=== PATIENT | female | born 1980 | race Caucasian/White ===

== ENCOUNTER 2018-06-01 20:44 | Emergency (ER) | payer OTHER ==
[~2018-06-01] VITALS: Ht 162.6 cm; Wt 72.6 kg
[2018-06-01] MEDS ORDERED: LOPRESSOR50 (21:00)
[2018-06-01] MEDS ORDERED: MUSCLE RELAXER (21:01)
[2018-06-01] MEDS ORDERED: CYMBALTA (21:01)
[2018-06-01 21:20] LABS: ABSOLUTE BASOPHILS 0.2 thou/uL (0.0-0.2); ABSOLUTE EOSINOPHILS 0.3 thou/uL (0.0-0.7); ABSOLUTE LYMPHOCYTES 3.5 thou/uL (0.8-5.3); ABSOLUTE MONOCYTES 0.6 thou/uL (0.0-1.2); ABSOLUTE NEUTROPHILS 4.8 thou/uL (1.6-8.1); BASOPHILS 1.9 %; EOSINOPHILS 3.1 %; HEMATOCRIT 38.3 % (37.0-47.0); HEMOGLOBIN 12.9 gm/dL (12.0-15.0); LYMPHOCYTES 37.6 %; MCH 30.8 pg (26.0-34.0); MCHC 33.8 g/dL (28.0-37.0); MCV 91.2 fL (80.0-100.0); MONOCYTES 6.5 %; MPV 7.9 fl. (7.2-11.1); NUCLEATED RBCS 0 /100WBC; PLATELET COUNT* 354 thou/uL (150-400); POLYS 50.9 %; RDW-CV 12.8 % (10.5-14.5); WBC 9.4 thou/uL (4.0-11.0)
[2018-06-01 21:57] LABS: CALCIUM 8.7 mg/dL (8.5-10.1); CREATININE 0.8 mg/dL (0.6-1.3); POTASSIUM 3.8 mmol/L (3.5-5.1)
[2018-06-01] MEDS ORDERED: ZOFRAN ODT4 MG PO (23:31)
[2018-06-01] MEDS ORDERED: NORCO 5-325 TA1 EACH PO (23:31)
[2018-06-01 23:49] VITALS: BP 128/65
--- NOTE | 2018-06-02 10:39 | EKG ---
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
--- NOTE | 2018-06-02 10:44 | EKG ---
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
== END 2018-06-01 23:50 | disposition home or self-care (01) ==
LOC: M.ERS 20:44
PROVIDERS: Emergency Medicine Emergency Medical Services
DX: M25.512 Pain in left shoulder (principal); R11.2 Nausea with vomiting, unspecified; J45.909 Unspecified asthma, uncomplicated; F17.210 Nicotine dependence, cigarettes, uncomplicated; Z88.1 Allergy status to other antibiotic agents; Z88.8 Allergy status to other drugs, medicaments and biological substances; Z90.710 Acquired absence of both cervix and uterus; Z90.49 Acquired absence of other specified parts of digestive tract